=== PATIENT | male | born 2000 | race Caucasian/White ===

== ENCOUNTER 2023-06-26 11:07 | Emergency (ER) | payer BC ==
[2023-06-26] MEDS: Alum Hydro/Mag Hydro/Simeth XS 15 ML, Lidocaine 2% 5 ML PO STA (13:20)
== END 2023-06-26 13:58 | disposition home or self-care (01) ==
LOC: MW.ED 11:07
DX: K21.9 Gastro-esophageal reflux disease without esophagitis (principal); F17.210 Nicotine dependence, cigarettes, uncomplicated
CPT/HCPCS: 99283; A9270

== ENCOUNTER 2024-03-31 22:05 | Emergency (ER) | payer BC ==
[2024-03-31 22:21] LABS: BASOPHILS ABSOLUTE AUTO 0.11 K/uL (0.00-0.20); BASOPHILS PERCENT AUTO 0.9 % (0.0-1.0); EOSINOPHILS ABSOLUTE AUTO 0.22 K/uL (0.00-0.45); EOSINOPHILS PERCENT AUTO 1.7 % (0.0-6.0); HEMATOCRIT 48.3 % (42.0-52.0); HEMOGLOBIN 16.6 g/dL (14.0-18.0); IMMATURE GRAN ABSOLUTE AUTO 0.06 K/uL (0.00-0.05); IMMATURE GRAN PERCENT AUTO 0.5 % (0.0-0.4); LYMPHOCYTES PERCENT AUTO 37.1 % (24.0-44.0); MEAN CORPUSCULAR HEMOGLOBIN 31.1 pg (28.0-32.0); MEAN CORPUSCULAR HGB CONC 34.4 g/dL (32.0-36.0); MEAN CORPUSCULAR VOLUME 90.4 fL (83.0-99.0); MEAN PLATELET VOLUME 8.9 fL (9.4-12.4); MONOCYTES ABSOLUTE AUTO 1.24 K/uL (0.00-0.80); MONOCYTES PERCENT AUTO 9.8 % (0.0-8.0); NEUTROPHILS ABSOLUTE AUTO 6.35 K/uL (1.80-7.70); PLATELET COUNT,PLT 299 K/uL (150-400); RED BLOOD CELL COUNT 5.34 M/uL (4.52-5.90); WHITE BLOOD CELL COUNT,WBC 12.68 K/uL (3.9-11.3)
[2024-03-31] MEDS: fentaNYL 100 MCG/2 ML SDV IVPUSH ONE (22:29)
[2024-03-31 22:50] LABS: CALCIUM 9.5 mg/dL (8.5-10.1); CARBON DIOXIDE,CO2 26.4 mmol/L (21.0-32.0); CREATININE 1.3 mg/dL (0.8-1.3); EST CRCL DRUG DOSING (CG) 92.81 mL/min; POTASSIUM,K 3.1 mmol/L (3.5-5.1)
[2024-04-01] MEDS: Ketorolac 30 MG/ML SDV IVPUSH ONE (04:48)
== END 2024-04-01 05:34 | disposition home or self-care (01) ==
LOC: MW.ED 22:05
DX: S82.832A Other fracture of upper and lower end of left fibula, initial encounter for closed fracture (principal); Z79.899 Other long term (current) drug therapy; W13.0XXA Fall from, out of or through balcony, initial encounter
CPT/HCPCS: 36415; 73562; 73590; 73610; 80048; 80307; 85025; 96374; 96375; 99284; J1885; J3010

== ENCOUNTER 2024-04-08 11:54 | Day surgery (SDC) | payer BC ==
[~2024-04-08 11:54] MED LIST: Albuterol 0.083% 2.5 MG/3 ML Neb Soln NEB PRN; HYDROmorphone 1 MG/ML Syringe IVPUSH PRN; Lidocaine 2% 5 ML SDV ONE; Metoclopramide 10 MG/2 ML SDV IVPUSH PRN; Morphine 2 MG/ML SYRINGE IVPUSH PRN; Naloxone 0.4 MG/ML SDV IVPUSH PRN; Ondansetron 4 MG/2 ML SDV IVPUSH PRN; Phenylephrine HCl In 0.9% NaCl 1 MG/10 ML Syringe IVPUSH PRN; Ropivacaine 0.5% 5 MG/ML 30 ML SDV ONE; ceFAZolin 2 GM in Sodium Chloride 0.9% 50 ML IV ONE; fentaNYL 50 MCG/ML SDV IVPUSH PRN
[2024-04-08] MEDS: Lactated Ringers 1,000 ML IV SCH (13:24)
[2024-04-08] MEDS ORDERED: Bupivacaine 0.5%/EPINEPHrine 1:200,000 30 ML SDV ONE (14:24)
[2024-04-08] MEDS ORDERED: dexmedeTOMIDine HCl 200 MCG/2 ML SDV ONE (14:39)
[2024-04-08] MEDS ORDERED: Propofol 200 MG/20 ML SDV ONE (14:40)
[2024-04-08] MEDS ORDERED: fentaNYL 100 MCG/2 ML SDV ONE (14:40)
[2024-04-08] MEDS ORDERED: Midazolam 1 MG/ML 2 ML SDV ONE (14:51)
[2024-04-08] MEDS ORDERED: Ketamine HCL/NACL, ISO-OSM 50 MG/5 ML Syringe ONE (15:21)
[2024-04-08] MEDS ORDERED: ceFAZolin 2 GM Vial ONE (15:27)
[2024-04-08] MEDS ORDERED: Ondansetron 4 MG/2 ML SDV ONE (15:34)
[2024-04-08] MEDS ORDERED: Dexamethasone 4 MG/ML 5 ML MDV ONE (15:34)
[2024-04-08] MEDS ORDERED: Ketorolac 30 MG/ML SDV ONE (16:17)
[2024-04-08] MEDS ORDERED: HYDROmorphone 2 MG/ML Syringe ONE (16:19)
== END 2024-04-08 19:15 ==
LOC: MW.SDS 11:54 → MW.MS 18:13 → MW.SDS 19:15
PROVIDERS: ATTEND Orthopaedic Surgery
DX: S82.402A Unspecified fracture of shaft of left fibula, initial encounter for closed fracture (principal); F17.210 Nicotine dependence, cigarettes, uncomplicated; X58.XXXA Exposure to other specified factors, initial encounter
CPT/HCPCS: 27792; 27829; 76000; C1713; J0131; J0690; J1100; J1171; J1885; J2250; J2405; J2704; J2795; J3010; J7120; 01480; 64447; J3490

== ENCOUNTER 2024-04-09 18:10 | Emergency (ER) | payer BC ==
[2024-04-09] MEDS: oxyCODONE 5 MG Tab PO ONE (18:37)
== END 2024-04-09 19:10 | disposition home or self-care (01) ==
LOC: MW.ED 18:10
DX: G89.18 Other acute postprocedural pain (principal); M79.662 Pain in left lower leg; Z79.891 Long term (current) use of opiate analgesic; Z79.899 Other long term (current) drug therapy
CPT/HCPCS: 99283; A9270; 99282

== ENCOUNTER 2024-05-08 18:00 | Emergency (ER) | payer OTHER, BC ==
[2024-05-08] MEDS: Orphenadrine 60 MG/2 ML Inj IM ONE (20:12)
[2024-05-08] MEDS: Ketorolac 30 MG/ML SDV IVPUSH ONE (20:12)
[2024-05-08] MEDS: Lidocaine 4% 1 each Patch TOP STA ×2 (20:15→21:31)
== END 2024-05-08 21:35 | disposition home or self-care (01) ==
LOC: MW.ED 18:00
DX: M25.572 Pain in left ankle and joints of left foot (principal); M54.50 Low back pain, unspecified; Z75.8 Other problems related to medical facilities and other health care; V89.2XXA Person injured in unspecified motor-vehicle accident, traffic, initial encounter; Y92.410 Unspecified street and highway as the place of occurrence of the external cause
CPT/HCPCS: 73610; 96372; 96374; 99284; A9270; J1885; J2360

== ENCOUNTER 2024-11-27 15:27 | Emergency (ER) | payer BC, OTHER ==
[2024-11-27 15:57] LABS: BASOPHILS ABSOLUTE AUTO 0.06 K/uL (0.00-0.20); BASOPHILS PERCENT AUTO 0.8 % (0.0-1.0); EOSINOPHILS ABSOLUTE AUTO 0.11 K/uL (0.00-0.45); EOSINOPHILS PERCENT AUTO 1.4 % (0.0-6.0); IMMATURE GRAN ABSOLUTE AUTO 0.02 K/uL (0.00-0.05); IMMATURE GRAN PERCENT AUTO 0.3 % (0.0-0.4); LYMPHOCYTES ABSOLUTE AUTO 2.55 K/uL (1.00-4.80); LYMPHOCYTES PERCENT AUTO 32.1 % (24.0-44.0); MEAN PLATELET VOLUME 9.0 fL (9.4-12.4); MONOCYTES ABSOLUTE AUTO 0.60 K/uL (0.00-0.80); MONOCYTES PERCENT AUTO 7.6 % (0.0-8.0); NEUTROPHILS ABSOLUTE AUTO 4.60 K/uL (1.80-7.70); NEUTROPHILS PERCENT AUTO 57.8 % (41.0-71.0); NRBC ABSOLUTE 0.00 K/uL (0.00-0.02); NRBC PERCENT 0.0 /100WBC (0.0-0.2); PLATELET COUNT,PLT 278 K/uL (150-400); RED BLOOD CELL COUNT 5.39 M/uL (4.52-5.90); WHITE BLOOD CELL COUNT,WBC 7.94 K/uL (3.9-11.3)
[2024-11-27] MEDS: Prochlorperazine 10 MG/2 ML SDV IVPUSH ONE (16:00)
[2024-11-27] MEDS: diphenhydrAMINE 50 MG/ML SDV IVPUSH ONE (16:00)
[2024-11-27 16:18] LABS: A/G RATIO 1.4 (0.9-1.6); ALANINE AMINOTRANSFERASE,ALT 27 IU/L (14-63); ASPARTATE AMNIOTRANSFERASE,AST 17 IU/L (15-37); BILIRUBIN TOTAL 1.9 mg/dL (0.2-1.0); BLOOD UREA NITROGEN,BUN 17 mg/dL (7.0-18.0); CARBON DIOXIDE,CO2 28.1 mmol/L (21.0-32.0); CHLORIDE,CL 101 mmol/L (98-107); CREATININE 1.2 mg/dL (0.8-1.3); ETHANOL BLOOD MEDICAL <3 mg/dL; GLUCOSE RANDOM 88 mg/dL (74-106); POTASSIUM,K 3.8 mmol/L (3.5-5.1); PROTEIN TOTAL,TP 7.7 g/dL (6.4-8.2); SODIUM,NA 138 mmol/L (136-148)
[2024-11-27 16:19] LABS: ESTIMATED GFR 88 mL/min (>60)
[2024-11-27] MEDS: Ketorolac 30 MG/ML SDV IVPUSH ONE (17:16)
[2024-11-27 17:31] LABS: APPEARANCE,URINE CLEAR; GLUCOSE,URINE NEGATIVE (NEGATIVE); OCCULT BLOOD,URINE NEGATIVE (NEGATIVE)
[2024-11-27 17:41] LABS: AMPHETAMINES SCREEN, URINE NEGATIVE (CUTOFF=500); BUPRENORPHINE SCREEN,URINE NEGATIVE (CUTOFF=10); METHADONE SCREEN, URINE NEGATIVE (CUTOFF=200); METHAMPHETAMINES SCREEN, URINE NEGATIVE (CUTOFF=500); OXYCODONE SCREEN,URINE NEGATIVE (CUT0FF=100); PCP SCREEN,URINE NEGATIVE (CUTOFF=25); THC SCREEN,URINE 20 NG/ML PRESUMPTIVE POSITIVE (CUTOFF=50)
== END 2024-11-27 17:56 | disposition home or self-care (01) ==
LOC: MW.ED 15:27
DX: G43.909 Migraine, unspecified, not intractable, without status migrainosus (principal); Z75.3 Unavailability and inaccessibility of health-care facilities
CPT/HCPCS: 36415; 70450; 80053; 80305; 80307; 81003; 83690; 83735; 85025; 96361; 96374; 96375; 99284; J0780; J1200; J1885; J7030; 99283